=== PATIENT | female | born 1955 | race American Indian/Alaskan Native ===

== ENCOUNTER 2019-06-30 09:05 | Emergency (ER) | payer MEDICARE, OTHER ==
[2019-06-30] MEDS ORDERED: SODIUM CHLORIDE 0.9% 1000 ML 1,000 ML IV ONE (09:46)
--- NOTE | 2019-06-30 09:48 | Emergency Department Report ---
ED Abdominal Pain HPI - General Chief Complaint: Dyspnea/Respdistress Stated Complaint: FATIGUE/LIGHTHEADED/JOSE Time Seen by Provider: 06/30/19 09:45 Source: patient Mode of arrival: Ambulatory Limitations: No Limitations - History of Present Illness Initial Comments: 63 YO COMES TO ER CO FATIGUE AND SOB WITH ACTIVITY. NO CHEST PAIN. NO ABD PAIN. POS NAUSEA. NO BLOODY EMESIS. HAS HAD DARK STOOLS- WHICH SHE WAS TOLD TO EXPECT BY MD. PT WAS DC FROM [facility] ON 06/28 AFTER BEING TREATED FOR UGI BLEED; RECEIVING 4 RBC PER PT. ON DC HGB WAS 8.9. PT REPORT ESOPHAGEAL TEAR AND "CLIPS." HOME RX FE PPI FATHER AND MOTHER DEC OF COMPLICATIONS OF CVA PCP DR CHESTER[place] -: Gradual Associated Symptoms: denies other symptoms - Related Data Allergies Allergy/AdvReac Type Severity Reaction Status Date / Time No Known Allergies Allergy Verified 05/13/14 08:10 ED Review of Systems ROS: Stated complaint: FATIGUE/LIGHTHEADED/JOSE Other details as noted in HPI Comment: All other systems reviewed and negative ED Past Medical Hx - Past Medical History Previous Medical History?: Yes Additional medical history: esophageal "tear" - Surgical History Past Surgical History?: Yes Additional Surgical History: Banding of esophageal "tear" - Family History Family history: no significant - Social History Smoking Status: Never Smoker Substance Use Type: None ED Physical Exam - General Limitations: No Limitations General appearance: alert, in no apparent distress - Head Head exam: Present: atraumatic, normocephalic - Eye Eye exam: Present: normal appearance - ENT ENT exam: Present: mucous membranes moist - Neck Neck exam: Present: normal inspection - Respiratory Respiratory exam: Present: normal lung sounds bilaterally. Absent: respiratory distress - Cardiovascular Cardiovascular Exam: Present: regular rate, normal rhythm. Absent: systolic murmur, diastolic murmur, rubs, gallop - GI/Abdominal GI/Abdominal exam: Present: soft, normal bowel sounds - Extremities Exam Extremities exam: Present: normal inspection - Back Exam Back exam: Present: normal inspection - Neurological Exam Neurological exam: Present: alert, oriented X3 - Psychiatric Psychiatric exam: Present: normal affect, normal mood - Skin Skin exam: Present: warm, dry, intact, normal color. Absent: rash ED Course Vital Signs 06/30/19 06/30/19 06/30/19 09:09 10:10 10:21 Temperature 98.3 F Pulse Rate 96 H Respiratory 16 Rate Blood Pressure Blood Pressure 141/72 [Left] O2 Sat by Pulse 100 100 100 Oximetry 06/30/19 10:30 Temperature Pulse Rate 85 Respiratory 14 Rate Blood Pressure 123/78 Blood Pressure [Left] O2 Sat by Pulse 100 Oximetry - Reevaluation(s) Reevaluation #1: 06/30/[address] [facility] RECORDS [address] MANRIQUE NO RESULTS FROM [facility] OF THIS TIME. Reevaluation #2: 06/30/19 12:22 RUBALCAVA PAGED Reevaluation #3: 06/30/19 12:36 CASE DISCUSSED WITH GINI LIGHT FOLLOW UP APPNT MOVED TO TOMORROW AM ED Medical Decision Making - Lab Data Result diagrams: 06/30/19 09:33 06/30/19 09:33 - EKG Data EKG shows normal: sinus rhythm Rate: normal - EKG Data When compared to previous EKG there are: no significant change Interpretation: no acute changes - Radiology Data Radiology results: report reviewed, image reviewed - Medical Decision Making Lab Results 06/30/19 06/30/19 06/30/19 Range/Units 09:33 09:33 09:36 WBC 6.1 (4.5-11.0) K/mm3 RBC 3.45 L (3.65-5.03) M/mm3 Hgb 10.3 (10.1-14.3) gm/dl Hct 30.3 (30.3-42.9) % MCV 88 (79-97) fl MCH 30 (28-32) pg MCHC 34 (30-34) % RDW 15.7 H (13.2-15.2) % Plt Count 181 (140-440) K/mm3 Lymph % (Auto) 16.3 (13.4-35.0) % Hardy % (Auto) 9.1 H (0.0-7.3) % Eos % (Auto) 2.9 (0.0-4.3) % Baso % (Auto) 0.4 (0.0-1.8) % Lymph # 1.0 L (1.2-5.4) K/mm3 Hardy # 0.6 (0.0-0.8) K/mm3 Eos # 0.2 (0.0-0.4) K/mm3 Baso # 0.0 (0.0-0.1) K/mm3 Seg Neutrophils % 71.3 H (40.0-70.0) % Seg Neutrophils # 4.4 (1.8-7.7) K/mm3 PT (12.2-14.9) Sec. INR (0.87-1.13) APTT (24.2-36.6) Sec. Sodium 142 (137-145) mmol/L Potassium 3.7 (3.6-5.0) mmol/L Chloride 102.4 (98-107) mmol/L Carbon Dioxide 21 L (22-30) mmol/L Anion Gap 22 mmol/L BUN 16 (7-17) mg/dL Creatinine 0.8 (0.7-1.2) mg/dL Estimated GFR > 60 ml/min BUN/Creatinine Ratio 20 % Glucose 131 H (65-100) mg/dL Calcium 8.9 (8.4-10.2) mg/dL Total Bilirubin 0.40 (0.1-1.2) mg/dL AST 28 (5-40) units/L ALT 17 (7-56) units/L Alkaline Phosphatase 51 (35-129) units/L Troponin T (0.00-0.029) ng/mL Total Protein 6.0 L (6.3-8.2) g/dL Albumin 3.8 L (3.9-5) g/dL Albumin/Globulin Ratio 1.7 % Urine Color (Yellow) Urine Turbidity (Clear) Urine pH (5.0-7.0) Ur Specific Sebastian (1.003-1.030) Urine Protein (Negative) mg/dL Urine Glucose (UA) (Negative) mg/dL Urine Ketones (Negative) mg/dL Urine Blood (Negative) Urine Nitrite (Negative) Urine Bilirubin (Negative) Urine Urobilinogen (<2.0) mg/dL Ur Leukocyte Esterase (Negative) Urine WBC (Auto) (0.0-6.0) /HPF Urine RBC (Auto) (0.0-6.0) /HPF U Epithel Cells (Auto) (0-13.0) /HPF Urine Mucus /HPF Blood Type O POSITIVE Antibody Screen Negative 06/30/19 06/30/19 06/30/19 Range/Units 10:17 10:17 Unknown WBC (4.5-11.0) K/mm3 RBC (3.65-5.03) M/mm3 Hgb (10.1-14.3) gm/dl Hct (30.3-42.9) % MCV (79-97) fl MCH (28-32) pg MCHC (30-34) % RDW (13.2-15.2) % Plt Count (140-440) K/mm3 Lymph % (Auto) (13.4-35.0) % Hardy % (Auto) (0.0-7.3) % Eos % (Auto) (0.0-4.3) % Baso % (Auto) (0.0-1.8) % Lymph # (1.2-5.4) K/mm3 Hardy # (0.0-0.8) K/mm3 Eos # (0.0-0.4) K/mm3 Baso # (0.0-0.1) K/mm3 Seg Neutrophils % (40.0-70.0) % Seg Neutrophils # (1.8-7.7) K/mm3 PT 12.6 (12.2-14.9) Sec. INR 0.95 (0.87-1.13) APTT 25.2 (24.2-36.6) Sec. Sodium (137-145) mmol/L Potassium (3.6-5.0) mmol/L Chloride (98-107) mmol/L Carbon Dioxide (22-30) mmol/L Anion Gap mmol/L BUN (7-17) mg/dL Creatinine (0.7-1.2) mg/dL Estimated GFR ml/min BUN/Creatinine Ratio % Glucose (65-100) mg/dL Calcium (8.4-10.2) mg/dL Total Bilirubin (0.1-1.2) mg/dL AST (5-40) units/L ALT (7-56) units/L Alkaline Phosphatase (35-129) units/L Troponin T < 0.010 (0.00-0.029) ng/mL Total Protein (6.3-8.2) g/dL Albumin (3.9-5) g/dL Albumin/Globulin Ratio % Urine Color Straw (Yellow) Urine Turbidity Clear (Clear) Urine pH 7.0 (5.0-7.0) Ur Specific Sebastian 1.004 (1.003-1.030) Urine Protein <15 mg/dl (Negative) mg/dL Urine Glucose (UA) Neg (Negative) mg/dL Urine Ketones Neg (Negative) mg/dL Urine Blood Sm (Negative) Urine Nitrite Neg (Negative) Urine Bilirubin Neg (Negative) Urine Urobilinogen < 2.0 (<2.0) mg/dL Ur Leukocyte Esterase Neg (Negative) Urine WBC (Auto) < 1.0 (0.0-6.0) /HPF Urine RBC (Auto) 2.0 (0.0-6.0) /HPF U Epithel Cells (Auto) 1.0 (0-13.0) /HPF Urine Mucus Few /HPF Blood Type Antibody Screen Vital Signs 06/30/19 06/30/19 06/30/19 09:09 10:10 10:21 Temperature 98.3 F Pulse Rate 96 H Respiratory 16 Rate Blood Pressure Blood Pressure 141/72 [Left] O2 Sat by Pulse 100 100 100 Oximetry 06/30/19 10:30 Temperature Pulse Rate 85 Respiratory 14 Rate Blood Pressure 123/78 Blood Pressure [Left] O2 Sat by Pulse 100 Oximetry PER PT HGB 8.9 ON DC FROM [facility] ON 06/28 TODAY OVER 10 VSS HR DEC P GETTING 1L NS EKG AND TROP NORMAL CHEST XRAY NORMAL PT HAS HAD NO N/V/D WHILE IN ER. PT HAS APPNT WITH DR MELARA ON FRIDAY; AND FOLLOW UP EGD IN 6 WEEKS. KALYANI CALLED AND DISCUSSED CASE WITH GINI LIGHT- FOLLOW UP IN AM; CONTINUE MEDS WILL DC HOME WITH FOLLOW UP IN AM WITH GINI TO CONTINUE PPI AND FE RETURN IF WORSENS PT AND VERBALIZE UNDERSTANDING OF DC PLAN OF CARE. ON DC PT IS TAKING PO AND AMBULATORY - Differential Diagnosis RO PERF ULCER/ESOPHAGUS; GIB Critical care attestation.: If time is entered above; I have spent that time in minutes in the direct care of this critically ill patient, excluding procedure time. ED Disposition Clinical Impression: Anemia, Fatigue Disposition: DC-01 TO HOME OR SELFCARE Is pt being admited?: No Does the pt Need Aspirin: No Condition: Stable Instructions: Anemia (ED) Additional Instructions: DIET AND ACTIVITY TOLERATED CONTINUE YOUR PPI AND IRON STAY WELL HYDRATED AVOID ALCOHOL FOLLOW UP WITH PCP MAIRA AND GI INSTRUCTED Referrals: [facility], MD [Primary Care Provider] - 3-5 Days Time of Disposition: 12:21
[2019-06-30] MEDS ORDERED: PANTOPRAZOLE 40 MG INJ IV ONE (09:53)
[2019-06-30 10:08] LABS: Basophils % (Auto) 0.4 % (0.0-1.8); Eosinophils # (Auto) 0.2 K/mm3 (0.0-0.4); Eosinophils % (Auto) 2.9 % (0.0-4.3); Hematocrit 30.3 % (30.3-42.9); Hemoglobin 10.3 gm/dl (10.1-14.3); Lymphocytes % (Auto) 16.3 % (13.4-35.0); Mean Corpuscular HGB Conc 34 % (30-34); Mean Corpuscular Volume 88 fl (79-97); Monocytes # (Auto) 0.6 K/mm3 (0.0-0.8); Monocytes % (Auto) 9.1 % (0.0-7.3); Platelet Count 181 K/mm3 (140-440); Red Blood Count 3.45 M/mm3 (3.65-5.03); Red Cell Distribution Width 15.7 % (13.2-15.2)
--- NOTE | 2019-06-30 10:22 | XRay Report ---
CHEST 1 VIEW INDICATION: SOB. COMPARISON: None. FINDINGS: Support devices: None. Heart: Within normal limits. Lungs/Pleura: No acute air space or interstitial disease. Additional findings: None. IMPRESSION: No acute abnormality. Signer Name: Drew Fatima MD Signed: 06/30/2019 10:18 AM Workstation Name: [id number]
[2019-06-30 10:31] LABS: Alanine Aminotransferase 17 units/L (7-56); Albumin 3.8 g/dL (3.9-5); BUN/Creatinine Ratio 20; Blood Urea Nitrogen 16 mg/dL (7-17); Calcium 8.9 mg/dL (8.4-10.2); Hemolysis Index 45
[2019-06-30 10:33] LABS: Bilirubin,Urine NEG (Negative); Blood,Urine SM (Negative); Color,Urine Straw (Yellow); Mucus,Urine FEW /HPF; Protein,Urine <15 mg/dL mg/dL (Negative); Urobilinogen,Urine < 2.0 mg/dL (<2.0); WBC,Urine < 1.0 /HPF (0.0-6.0)
[2019-06-30 10:42] LABS: Partial Thromboplastin Time 25.2 Sec. (24.2-36.6)
[2019-06-30 10:43] LABS: INR 0.95 (0.87-1.13)
[2019-06-30 13:02] VITALS: BP 118/71
== END 2019-06-30 13:06 | disposition home or self-care (01) ==
LOC: ED 09:05
DX: D64.9 Anemia, unspecified (principal); R53.83 Other fatigue
CPT/HCPCS: 36415; 71045; 80053; 81001; 84484; 85025; 85610; 85730; 86850; 86900; 86901; 93005; 93010; 96374; 99284; C9113; J7030